=== PATIENT | female | born 1990 | race Caucasian/White ===

== ENCOUNTER → 2018-10-01 | Outpatient (CLI) | payer OTHER ==
[2018-10-01 11:39] LABS: BACTERIA (WET MOUNT) 4+ BACTERIA SEEN; EPITHELIALS (WET MOUNT) 3+ EPITHELIALS SEEN; RBCS (WET MOUNT) RARE RBCS SEEN; T.VAGINALIS (WET MOUNT) NO TRICHOMONAS SEEN; WBCS (WET MOUNT) 3+ WBCS SEEN; YEAST (WET MOUNT) YEAST SEEN
== END ==
LOC: LAB 11:34
PROVIDERS: ATTEND Nurse Practitioner Family
DX: N89.8 Other specified noninflammatory disorders of vagina (principal)
CPT/HCPCS: 87210

== ENCOUNTER 2019-03-12 12:45 | Emergency (ER) | payer OTHER ==
[2019-03-12] MEDS ORDERED: NORMAL SALINE 1000 ML 1,000 ML IV ONE (13:38)
--- NOTE | 2019-03-12 13:40 | ER Document Report ---
ED Medical Screen (RME) - General Chief Complaint: Abdominal Pain Stated Complaint: ABDOMINAL PAIN Time Seen by Provider: 03/12/19 13:32 Primary Care Provider: BAMBI GARIBAY FNP-C [Primary Care Provider] - Follow up as needed Notes: Patient is a 28-year-old female presents to the emergency department for generalized epigastric abdominal pain. Patient states she did have a cholecystectomy in 2017. 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 States she typically has flareups from time to time. States she ran out of the medication for which she takes for these flareups. Stated she recently got the medication refilled but was "too late" and is having "too much pain." Medication is Hyoscyamine. Patient has denying any pain medication or nausea medication in triage. GENERAL: Alert, interacts well. No acute distress. ABDOMEN: Soft, generalized epigastric abdominal pain noted. Non-distended. Bowel sounds present in all 4 quadrants. I have greeted and performed a rapid initial assessment of this patient. A comprehensive ED assessment and evaluation of the patient, analysis of test results and completion of the medical decision making process will be conducted by additional ED providers. I have specifically instructed the patient or family members with the patient to immediately return to any nursing staff should anything change in the patient's condition or with their chief complaint. This medical record was dictated with voice recognizing software. There may be grammatical, syntax errors that are unintended. TRAVEL OUTSIDE OF THE [place] IN LAST 30 DAYS: No - Related Data Allergies/Adverse Reactions: clindamycin Allergy (Verified 03/12/19 12:56) Physical Exam - Vital signs Vitals: Temp Pulse Resp BP Pulse Ox 98.1 F 66 20 120/71 98 03/12/19 12:56 03/12/19 12:56 03/12/19 12:56 03/12/19 12:56 03/12/19 12:56 Course - Vital Signs Vital signs: Temp Pulse Resp BP Pulse Ox 98.1 F 66 20 120/71 98 03/12/19 12:56 03/12/19 12:56 03/12/19 12:56 03/12/19 12:56 03/12/19 12:56 Doctor's Discharge - Discharge Referrals: ALWES,BAMBI, SAT INSTRUCTOR-C [Primary Care Provider] - Follow up as needed
[2019-03-12 14:22] LABS: ABSOLUTE EOSINOPHILS # (AUTO) 0.2 10^3/uL (0.0-0.6); ABSOLUTE LYMPHOCYTES (AUTO) 2.4 10^3/uL (0.5-4.7); ABSOLUTE MONOCYTES (AUTO) 0.5 10^3/uL (0.1-1.4); ABSOLUTE NEUT (AUTO) 4.2 10^3/uL (1.7-8.2); BASOPHILS % (AUTO) 0.4 % (0-2); EOSINOPHILS % (AUTO) 2.9 % (0-6); HEMATOCRIT 39.8 % (36.0-47.0); HEMOGLOBIN 13.7 g/dL (12.0-15.5); LYMPHOCYTES % (AUTO) 32.5 % (13-45); MEAN CORPUSCULAR HEMOGLOBIN 30.2 pg (27.0-33.4); MEAN CORPUSCULAR HGB CONC 34.5 g/dL (32.0-36.0); MEAN CORPUSCULAR VOLUME 88 fl (80-97); MONOCYTES % (AUTO) 6.9 % (3-13); PLATELET COUNT 342 10^3/uL (150-450); RED BLOOD COUNT 4.54 10^6/uL (3.72-5.28); RED CELL DISTRIBUTION WIDTH 12.7 % (11.5-14.0); SEGMENTED NEUTROPHILS % (AUTO) 57.3 % (42-78); TOTAL CELLS COUNTED % (AUTO) 100 %; WHITE BLOOD COUNT 7.4 10^3/uL (4.0-10.5)
[2019-03-12 14:23] LABS: APPEARANCE,URINE CLEAR; BILIRUBIN,URINE NEGATIVE (NEGATIVE); COLOR,URINE STRAW; GLUCOSE, URINE NEGATIVE (NEGATIVE); KETONES,URINE NEGATIVE (NEGATIVE); LEUKOCYTE ESTERASE,URINE TRACE (NEGATIVE); NITRITE,URINE NEGATIVE (NEGATIVE); PROTEIN,URINE NEGATIVE (NEGATIVE); URINE SPECIFIC GRAVITY 1.011; UROBILINOGEN,URINE NEGATIVE mg/dL (<2.0)
--- NOTE | 2019-03-12 14:27 | ER Document Report ---
ED General - General Chief Complaint: Abdominal Pain Stated Complaint: ABDOMINAL PAIN Time Seen by Provider: 03/12/19 13:32 Primary Care Provider: BAMBI GARIBAY FNP-C [Primary Care Provider] - Follow up in 3-5 days TRAVEL OUTSIDE OF THE [place] IN LAST 30 DAYS: No - HPI Notes: 28-year-old female to the emergency department with complaints of upper abdominal pain gets worse with eating for over 1 week. She states that she has a history of chronic pancreatitis that developed after she had gallstones and required stenting. States that she has difficulty with her sphincter of Oddi. States that she is supposed to be taking Creon but has not been taking it. She also admits that she has been eating more fast foods. She notices that her pain increases anytime she eats something more fatty. Denies any fevers, yellowing of skin, chest pain, shortness of breath, diarrhea. States that she is not vomiting. States that she has a GI specialist in [place] who she is supposed to see on March 23. - Related Data Allergies/Adverse Reactions: clindamycin Allergy (Verified 03/12/19 12:56) Past Medical History - General Information source: Patient - Social History Smoking Status: Never Smoker Frequency of alcohol use: None Drug Abuse: None Family History: Reviewed & Not Pertinent Patient has suicidal ideation: No Patient has homicidal ideation: No Renal/ Medical History: Denies: Hx Peritoneal Dialysis Past Surgical History: Reports: Hx Appendectomy, Hx Breast Surgery - AUGMENTATION, Hx Cholecystectomy Review of Systems - Review of Systems Constitutional: denies: Chills, Fever EENT: No symptoms reported Cardiovascular: denies: Chest pain, Dyspnea, Syncope, Dizziness, Lightheaded Respiratory: denies: Cough, Short of breath Gastrointestinal: Abdominal pain, Nausea. denies: Diarrhea, Vomiting, Rectal bleeding Genitourinary: denies: Frequency, Flank pain, Hematuria Female Genitourinary: No symptoms reported Musculoskeletal: No symptoms reported Skin: No symptoms reported Neurological/Psychological: No symptoms reported -: Yes All other systems reviewed and negative Physical Exam - Vital signs Vitals: Temp Pulse Resp BP Pulse Ox 98.1 F 66 20 120/71 98 03/12/19 12:56 03/12/19 12:56 03/12/19 12:56 03/12/19 12:56 03/12/19 12:56 Interpretation: Normal - General General appearance: Appears well, Alert - HEENT Head: Normocephalic, Atraumatic Eyes: Normal Pupils: PERRL - Respiratory Respiratory status: No respiratory distress Chest status: Nontender Breath sounds: Normal Chest palpation: Normal - Cardiovascular Rhythm: Regular Heart sounds: Normal auscultation Murmur: No - Abdominal Inspection: Normal Distension: No distension Bowel sounds: Normal Tenderness: Tender - mild TTP over hte epigastrium with no rebound or guarding.. No: McBurney's point, Kennedy's sign, Guarding, Rebound Organomegaly: No organomegaly - Back Back: Normal, Nontender. No: CVA tenderness - Neurological Neuro grossly intact: Yes Cognition: Normal Orientation: AAOx4 Marian Coma Scale Eye Opening: Spontaneous [place] Coma Scale Verbal: Oriented Marian Coma Scale Motor: Obeys Commands Marian Coma Scale Total: 15 Speech: Normal Motor strength normal: LUE, RUE, LLE, RLE Sensory: Normal - Psychological Associated symptoms: Normal affect, Normal mood - Skin Skin Temperature: Warm Skin Moisture: Dry Skin Color: Normal Course - Re-evaluation Re-evalutation: 03/12/19 Abdomen Ultrasound 03/12/19 13:38 IMPRESSION: NORMAL RIGHT UPPER QUADRANT ULTRASOUND. Laboratory 03/12/19 03/12/19 03/12/19 13:55 14:00 14:00 WBC 7.4 RBC 4.54 Hgb 13.7 Hct 39.8 MCV 88 MCH 30.2 MCHC 34.5 RDW 12.7 Plt Count 342 Seg Neutrophils % 57.3 Lymphocytes % 32.5 Monocytes % 6.9 Eosinophils % 2.9 Basophils % 0.4 Absolute Neutrophils 4.2 Absolute Lymphocytes 2.4 Absolute Monocytes 0.5 Absolute Eosinophils 0.2 Absolute Basophils 0.0 Sodium 138.8 Potassium 4.4 Chloride 103 Carbon Dioxide 27 Anion Gap 9 BUN 12 Creatinine 0.56 Est GFR ( Amer) > 60 Est GFR (Non-Af Amer) > 60 Glucose 90 Calcium 9.7 Total Bilirubin 0.4 Direct Bilirubin 0.2 Neonat Total Bilirubin Not Reportable Neonat Direct Bilirubin Not Reportable Neonat Indirect Bili Not Reportable AST 17 ALT 17 Alkaline Phosphatase 50 Total Protein 7.4 Albumin 4.6 Lipase 178.6 Beta HCG, Quant < 2.39 Total Beta HCG NEGATIVE Urine Color STRAW Urine Appearance CLEAR Urine pH 7.0 Ur Specific [place] 1.011 Urine Protein NEGATIVE Urine Glucose (UA) NEGATIVE Urine Ketones NEGATIVE Urine Blood NEGATIVE Urine Nitrite NEGATIVE Urine Bilirubin NEGATIVE Urine Urobilinogen NEGATIVE Ur Leukocyte Esterase TRACE H Urine WBC (Auto) 1 Urine RBC (Auto) 1 Urine Bacteria (Auto) TRACE Squamous Epi Cells Auto 1 Urine Mucus (Auto) RARE Urine Ascorbic Acid NEGATIVE Impression: Epigastric abdominal pain, chronic pancreatitis. Lipase is not el evated and there is no leukocytosis. Patient is not febrile. She has not been taking her Creon -- mainly because she finds the dosing confusing. She states that she is supposed to see her GI specialist on March 23. She admits that she has not been maintaining her diet well. Urged to avoid soda, fatty foods, and will write her for more Creon. She declines any pain medicine today. Also urged to return if she has any worsening symptoms such as fevers, intractable vomiting, chest pain, shortness of breath, syncope. Patient agrees with the plan. Will discharge home. - Vital Signs Vital signs: Temp Pulse Resp BP Pulse Ox 98.1 F 66 20 120/71 98 03/12/19 12:56 03/12/19 12:56 03/12/19 12:56 03/12/19 12:56 03/12/19 12:56 - Laboratory Result Diagrams: 03/12/19 14:00 03/12/19 14:00 Laboratory results interpreted by me: 03/12/19 13:55 Ur Leukocyte Esterase TRACE H - Diagnostic Test Radiology reviewed: Image reviewed, Reports reviewed Discharge - Discharge Clinical Impression: Epigastric abdominal pain Chronic pancreatitis Qualifiers: Pancreatitis type: other Qualified Code(s): K86.1 - Other chronic pancreatitis Condition: Stable Disposition: HOME, SELF-CARE Instructions: Pancreatitis ([facility]) Additional Instructions: TAKE YOUR MEDICINE PRESCRIBED, TAKE CREON DIRECTED. KEEP YOUR APPOINTMENT WITH YOUR GI SPECIALIST FOR MAR 23. AVOID FAST FOOD OR FOODS HIGH IN FAT. PUSH FLUIDS. KEEP FOOD DIARY TO SEE WHAT FOODS OR BEVERAGES REALLY SET YOUR PAIN OFF. RETURN IF FEVERS, WORSENING PAIN, INTRACTABLE VOMITING. Prescriptions: Lipase/Protease/Amylase [Messi Alejandro 3,000 Units Capsule] 1 each PO ASDIR #20 capsule. Referrals: BAMBI GARIBAY, PRETZEL COOKER-C [Primary Care Provider] - Follow up in 3-5 days
[2019-03-12 14:33] LABS: ALANINE AMINOTRANSFERASE 17 U/L (9-52); ALBUMIN 4.6 g/dL (3.5-5.0); ALKALINE PHOSPHATASE 50 U/L (38-126); ANION GAP 9 (5-19); ASPARTATE AMINO TRANSFERASE 17 U/L (14-36); BILIRUBIN,DIRECT 0.2 mg/dL (0.0-0.4); BILIRUBIN,TOTAL 0.4 mg/dL (0.2-1.3); BLOOD UREA NITROGEN 12 mg/dL (7-20); CALCIUM 9.7 mg/dL (8.4-10.2); CARBON DIOXIDE 27 mmol/L (22-30); CHLORIDE 103 mmol/L (98-107); GLUCOSE 90 mg/dL (75-110); POTASSIUM 4.4 mmol/L (3.6-5.0); TOTAL PROTEIN 7.4 g/dL (6.3-8.2)
--- NOTE | 2019-03-12 15:17 | RADIOLOGY REPORT (SQ) ---
EXAM DESCRIPTION: U/S ABDOMEN LIMITED W/O DOP COMPLETED DATE/TIME: 03/12/2019 3:07 pm REASON FOR STUDY: RUQ/epigastric pain COMPARISON: None. TECHNIQUE: Dynamic and static grayscale images acquired of the abdomen and recorded on PACS. Additio nal selected color Doppler and spectral images recorded. LIMITATIONS: None. FINDINGS: PANCREAS: No masses. Visualized pancreatic duct normal caliber. LIVER: No masses. Echotexture normal. LIVER VASCULATURE: Normal directional flow of the main portal vein and hepatic veins. GALLBLADDER: Surgically absent. ULTRASOUND-DETECTED BRAN'S SIGN: Not applicable. INTRAHEPATIC DUCTS AND COMMON DUCT: CBD and intrahepatic ducts normal caliber. No filling defects. INFERIOR VENA CAVA: Normal flow. AORTA: No aneurysm. RIGHT KIDNEY: Normal size, 10.9 cm. Normal echogenicity. No solid or suspicious masses. No hydroneph rosis. No calcifications. PERITONEAL AND RIGHT PLEURAL SPACE: No ascites or effusions. OTHER: No other significant findings. IMPRESSION: NORMAL RIGHT UPPER QUADRANT ULTRASOUND. TECHNICAL DOCUMENTATION: JOB ID: [id number] [employer]- All Rights Reserved Reading location - IP/workstation name: [email or web address]
[2019-03-12 16:10] VITALS: BP 103/63
== END 2019-03-12 16:10 | disposition home or self-care (01) ==
LOC: ER 12:45
DX: R10.13 Epigastric pain (principal); R10.10 Upper abdominal pain, unspecified; K86.1 Other chronic pancreatitis; Z88.3 Allergy status to other anti-infective agents
CPT/HCPCS: 99284; 96360; 36415; 84702; 83690; 85025; 80053; 81001; 76705; J7030

== ENCOUNTER 2019-10-23 08:43 | Outpatient (CLI) | payer OTHER ==
[2019-10-23 09:53] LABS: AMORPHOUS SEDIMENT,URINE TRACE /HPF; APPEARANCE,URINE CLOUDY; BILIRUBIN,URINE NEGATIVE (NEGATIVE); COLOR,URINE YELLOW; GLUCOSE, URINE NEGATIVE (NEGATIVE); KETONES,URINE NEGATIVE (NEGATIVE); LEUKOCYTE ESTERASE,URINE NEGATIVE (NEGATIVE); NITRITE,URINE NEGATIVE (NEGATIVE); PROTEIN,URINE NEGATIVE (NEGATIVE); URINE SPECIFIC GRAVITY 1.016; UROBILINOGEN,URINE NEGATIVE mg/dL (<2.0)
[2019-10-23 10:22] LABS: URINE AMPHETAMINES SCREEN NEGATIVE; URINE BARBITURATES SCREEN NEGATIVE; URINE BENZODIAZEPINES SCREEN NEGATIVE; URINE COCAINE SCREEN NEGATIVE; URINE MARIJUANA (THC) SCREEN NEGATIVE; URINE METHADONE SCREEN NEGATIVE; URINE PHENCYCLIDINE SCREEN NEGATIVE
== END 2019-10-23 09:45 | disposition home or self-care (01) ==
LOC: LC 08:43
PROVIDERS: ATTEND Student in an Organized Health Care Education/Training Program
PROC: 4A1HXCZ Monitoring of Products of Conception, Cardiac Rate, External Approach (ICD-10-PCS; principal; 2019-10-23)
DX: O36.8120 Decreased fetal movements, second trimester, not applicable or unspecified (principal); Z3A.27 27 weeks gestation of pregnancy
CPT/HCPCS: 80307; 81001

== ENCOUNTER → 2020-03-24 | Outpatient (CLI) | payer OTHER ==
--- NOTE | 2020-03-24 16:38 | RADIOLOGY REPORT (SQ) ---
EXAM DESCRIPTION: CT ABDOMEN WITH IV ORAL CONT IMAGES COMPLETED DATE/TIME: 03/24/2020 3:03 pm REASON FOR STUDY: RUQ PAIN (R10.11), NAUSEA (R11.0), SPASM OF SPHINCTER OF ODDI (K83.4) R10.11 RIGH T UPPER QUADRANT PAIN R11.0 NAUSEA K83.4 SPASM OF SPHINCTER OF ODDI COMPARISON: None. TECHNIQUE: CT scan of the abdomen performed with intravenous and with oral contrast using helical sc anning technique with dynamic intravenous contrast injection. Images reviewed with lung, soft tissue, and bone windows. Reconstructed coronal and sagittal MPR images reviewed. Delayed images for evaluat ion of the urinary system also acquired and evaluated. All images stored on PACS. All CT scanners at this facility use dose modulation, iterative reconstruc tion, and/or weight based dosing when appropriate to reduce radiation dose to as low as reasonably ac hievable (ALARA). [facility]: Dose Right [facility]: CareDose [facility]: Dose Right [facility]: Teradose 4D [facility]: [employer] CONTRAST TYPE AND DOSE: contrast/concentration: Isovue 350.00 mmol/ml; Total Contrast Delivered: 88. 0 ml; Total Saline Delivered: 70.0 ml RENAL FUNCTION: Creatinine 0.6 RADIATION DOSE: CT Rad equipment meets quality standard of care and radiation dose reduction techniq ues were employed. CTDIvol: 9.6 - 9.6 mGy. DLP: 1027 mGy-cm. . LIMITATIONS: None. FINDINGS: LOWER CHEST: No significant findings. No nodules or infiltrates. LIVER: Normal size. No masses. No dilated ducts. SPLEEN: Normal size. No focal lesions. PANCREAS: No masses. No significant calcifications. No adjacent inflammation or peripancreatic fluid collections. Pancreatic duct not dilated. GALLBLADDER: Surgically absent. ADRENAL GLANDS: No significant masses or asymmetry. RIGHT KIDNEY AND URETER: No solid masses. No significant calcifications. No hydronephrosis or hyd roureter. LEFT KIDNEY AND URETER: No solid masses. No significant calcifications. No hydronephrosis or hydr oureter. AORTA AND VESSELS: No aneurysm. No dissection. Renal arteries, SMA, celiac without stenosis. RETROPERITONEUM: No retroperitoneal adenopathy, hemorrhage or masses. BOWEL AND PERITONEAL CAVITY: Cannot entirely exclude a masslike density on the posterior wall of the gastric fundus. It is possible that this is something that was ingested. No bowel masses or inflamm atory changes. No free fluid or peritoneal masses. APPENDIX: Surgically absent. PELVIS: Urinary bladder is normal. There is no pelvic mass or fluid collection. ABDOMINAL WALL: No masses. No hernias. BONES: No significant or acute findings. OTHER: No other significant finding. IMPRESSION: The study is essentially normal. Cannot entirely exclude a posterior mass in the gastri c fundus. TECHNICAL DOCUMENTATION: JOB ID: [id number] Quality ID # [id number]: Final reports with documentation of one or more dose reduction techniques (e.g., Au tomated exposure control, adjustment of the mA and/or kV according to patient size, use of iterative reconstruction technique) 2010 [employer]- All Rights Reserved Reading location - IP/workstation name: [email or web address]
== END ==
LOC: RAD 14:22
DX: K83.4 Spasm of sphincter of Oddi (principal); R10.11 Right upper quadrant pain; R11.0 Nausea
CPT/HCPCS: 74160; 82565